=== PATIENT | female | born 1950 | race African-American/Black ===

== ENCOUNTER 2018-01-31 20:30 | Emergency (ER) | payer MEDICARE ==
[~2018-01-31] VITALS: Ht 167.6 cm; Wt 74.0 kg
[~2018-01-31 20:30] MED LIST: AMLO10TA4 PO; ATOR10TA69 PO; BENA20TA10 PO; DOCU-138 PO; IBUP-2030 PO; METF-414 PO
[2018-01-31 21:06] VITALS: BP 144/88
[2018-01-31] MEDS ORDERED: IBUPROFEN 600MG TABLET PO STA (21:08)
[2018-01-31 22:02] LABS: BASOPHILS % 0.6 % (0.0-2.0); EOSINOPHILS % 1.7 % (0.0-5.0); HEMATOCRIT. 40.3 % (36.0-48.0); LYMPHOCYTES % 39.5 % (20.0-50.0); MEAN CORPUSCULAR HEMOGLOBIN 23.9 pg (28.0-32.0); MEAN CORPUSCULAR VOLUME 73.9 fL (81.0-99.0); MEAN PLATELET VOLUME 8.5 fl (7.4-10.4); MONOCYTES % 9.3 % (2.0-8.0); NEUTROPHILS % 48.9 % (40.0-76.0); PLATELET 212 x1000/uL (130-400); RED BLOOD CELL COUNT 5.45 mill/uL (4.2-5.4); RED CELL DISTRIBUTION WIDTH 14.8 % (11.6-14.6)
[2018-01-31 22:07] LABS: CHLORIDE 103 mEq/L (98-107)
== END 2018-01-31 23:50 | disposition home or self-care (01) ==
LOC: ER 20:30
DX: R07.9 Chest pain, unspecified (principal); E11.9 Type 2 diabetes mellitus without complications; I10 Essential (primary) hypertension
CPT/HCPCS: 36415; 71045; 84484; 93005; 99284

== ENCOUNTER 2018-04-10 10:07 | Emergency (ER) | payer MEDICARE ==
[~2018-04-10] VITALS: Ht 167.6 cm; Wt 70.0 kg
[2018-04-10 12:01] VITALS: BP 123/78
== END 2018-04-10 12:05 | disposition home or self-care (01) ==
LOC: ER 10:07
DX: Z76.0 Encounter for issue of repeat prescription (principal); E11.9 Type 2 diabetes mellitus without complications; I10 Essential (primary) hypertension
CPT/HCPCS: 99283

== ENCOUNTER 2019-10-31 09:18 | Emergency (ER) | payer MEDICARE, OTHER ==
[~2019-10-31] VITALS: Ht 165.1 cm; Wt 69.0 kg
[2019-10-31] MEDS ORDERED: ACETAMINOPHEN 325MG TABLET PO ONE (10:15)
[2019-10-31 12:17] VITALS: BP 131/88
== END 2019-10-31 12:32 | disposition home or self-care (01) ==
LOC: ER 09:18
DX: S05.11XA Contusion of eyeball and orbital tissues, right eye, initial encounter (principal); S43.401A Unspecified sprain of right shoulder joint, initial encounter; S93.502A Unspecified sprain of left great toe, initial encounter; E11.9 Type 2 diabetes mellitus without complications; I10 Essential (primary) hypertension; Z79.899 Other long term (current) drug therapy; W18.30XA Fall on same level, unspecified, initial encounter; Y93.89 Activity, other specified; Y92.89 Other specified places as the place of occurrence of the external cause; Y99.8 Other external cause status
CPT/HCPCS: 70486; 71045; 73030; 73630; 93005; 99285